=== PATIENT | male | born 1995 | race Caucasian/White ===

== ENCOUNTER 2025-02-20 16:02 | Emergency (ER) | payer SELFPAY ==
[2025-02-20] MEDS: Lidocaine/Epineph/Tetracaine 3 ML Syringe TOP ONE (17:22)
== END 2025-02-20 18:36 | disposition home or self-care (01) ==
LOC: MW.ED 16:02
DX: K61.0 Anal abscess (principal); Z88.0 Allergy status to penicillin; Z79.899 Other long term (current) drug therapy; Z75.3 Unavailability and inaccessibility of health-care facilities
CPT/HCPCS: 10060; 99283; A9270; J2003